=== PATIENT | male | born 1950 | race Caucasian/White ===

== ENCOUNTER → 2025-01-06 12:15 | Outpatient (REF) | payer MEDICARE, OTHER, SELFPAY ==
[2025-01-06 12:40] VITALS: BP 143/100; BP_SYST 63
[2025-01-06 13:45] VITALS: BP 128/92; BP_SYST 66
[2025-01-06 13:56] VITALS: BP 128/92
== END ==
LOC: RADI 12:15
PROVIDERS: ATTENDING PHYSICIAN Internal Medicine Geriatric Medicine
DX: C82.95 Follicular lymphoma, unspecified, lymph nodes of inguinal region and lower limb (principal)
CPT/HCPCS: 20206; 76942; 88305; 88333; 88341; 88342